=== PATIENT | male | born 2000 | race Caucasian/White ===

== ENCOUNTER 2024-11-29 10:05 | Emergency (ER) | payer BC, SELFPAY ==
[2024-11-29 10:05] VITALS: BP 123/83; PULSE 49; RESP 16; TEMP 36.1; O2SAT 100; BMI 25.2
--- NOTE | 2024-11-29 10:28 | RAD_ITS ---
PROCEDURE: SHOULDER MIN 2 VIEWS 11/29/2024 REASON FOR EXAM: Pain, decreased range of motion TECHNIQUE: SHOULDER MIN 4 VIEWS COMPARISON: None FINDINGS: Bones: No fracture or suspicious osseous lesion Joints: Joint spaces well-preserved, no dislocation or subluxation. Soft tissues: Unremarkable Other: No upper rib fracture or pneumothorax RAD/Shoulder min 2 Views IMPRESSION: No acute abnormalities Reading Location: [id number]
--- NOTE | 2024-11-29 10:46 | EX.ED.UPPERE ---
HPI History of Present Illness Chief Complaint: Upper Extremity Injury Narrative Narrative: Chief complaint and HPI: Right shoulder pain. 24-year-old male with no significant past medical history presents for evaluation of right shoulder pain. Onset of symptoms yesterday. Denies any trauma or injury. Denies lifting anything heavy. States he went to [facility] in which she had an x-ray performed however left before results. He has been taking Tylenol with little relief. Denies any numbness or tingling. Denies any fever, chills, shortness of breath, chest pain, nausea, vomiting. Review of systems: See HPI Medications: As listed on the chart Allergies: As listed on the chart PFSH: Per chart Vital signs: As listed on the chart. Reviewed. Physical exam: Gen: A&O x3, NAD Head: Normocephalic, atraumatic Eyes: No sclera icterus, conjunctiva clear ENT: Moist mucous membranes Neck: Trachea midline, No JVD full range of motion, nontender, CV: RRR, no murmurs Resp: Lungs CTA BL, no w/r/c Musc: Limited active range of motion of the right shoulder secondary to pain, full passive range of motion, no erythema/warmth/ecchymosis/induration/fluctuance/crepitus\/rash, no dislocation, mild tenderness to palpation of the deltoid muscle, radial pulse +2 bilaterally, good capillary refill, compartments soft, no midline spinal tenderness, no bony step-offs Skin: Warm, dry Neuro: Alert, oriented, grossly intact, sensation intact Psych: Cooperative, appropriate mood and affect PFSH PFSH Medical History no medical history Home Medications ?Medication ?Instructions ?Recorded ?Last Taken ?Type cyclobenzaprine 5 mg tablet 5 mg PO TID PRN muscle spasm 3 11/29/24 Unknown Rx days #9 tabs Allergy/AdvReac Type Severity Reaction Status Date / Time No Known Allergies Allergy Verified 11/29/24 10:07 Social History Smoking Status: Current every day smoker tobacco type: e-cigarettes EXAM Physical Exam Const Vital Signs: 11/29/24 10:05 Temperature 96.9 F L Temperature Source Temporal Pulse Rate 49 L Respiratory Rate 16 Blood Pressure 123/83 H Blood Pressure Mean 96 Pulse Ox 100 Oxygen Delivery Method Room Air MDM MDM MDM Narrative Medical decision making narrative: 24-year-old male with no significant past medical history presents for evaluation of right shoulder pain. Onset of symptoms yesterday. Denies any trauma or injury. Differential diagnosis includes but is not limited to myofascial spasm, rotator cuff injury, suspect less likely fracture or dislocation. Exam and history not consistent for infection. IM Toradol and cyclobenzaprine ordered for symptoms. X-ray of the shoulder ordered. X-ray of the right shoulder was personally viewed interpreted by me, ED physician. No fracture or dislocation. Radiology in agreement. At this point in time, no clear etiology for patient's pain. May be secondary to myofascial spasm versus shoulder strain. Patient was educated on Tylenol Motrin as needed for pain. Muscle relaxer as needed for spasm. Follow-up with primary care physician and orthopedic physician. Return precautions explained. He confirmed understand the plan. Patient stable to discharge home. Impression: 1. Right shoulder pain Discharge Plan Triage Chief Complaint: Upper Extremity Injury ED Provider: Pepito Light Dx/Rx/DC Orders Clinical Impression: Right shoulder strain Instructions: ED Shoulder Pain, Uncertain Cause Prescriptions: New cyclobenzaprine 5 mg tablet 5 mg PO TID PRN (Reason: muscle spasm) 3 Days Qty: 9 0RF Primary Care Provider: Care Physician,Dena Primary Referrals: Shiraz Davis DO [Med Staff - Active Staff] - 3-5 Days Onofre Cervantes MD [Med Staff - Active Staff] - 3-5 Days Activity Restrictions/Additional Instructions: You received Toradol here in the emergency department, no ibuprofen for 8 hours after that okay for ibuprofen. Recommend Tylenol. Muscle relaxer as needed for muscle spasm. You received your first dose here in the emergency department. No muscle relaxer for 8 hours. Muscle relaxers can increase falls, confusion, fatigue. Do not drive or operate heavy machinery while taking these. Follow-up with primary care physician and orthopedics. Print Language: Libyan Disposition Disposition: Home, Self Care
[2024-11-29] MEDS: Ketorolac 30 MG/ML Syringe IV (11:15)
[2024-11-29 11:40] VITALS: BP 112/72; PULSE 69; RESP 17; TEMP 36.9; O2SAT 100
== END 2024-11-29 11:40 | disposition home or self-care (01) ==
PROVIDERS: Emergency Provider Surgery; Visit Provider Surgery
DX: S46.911A Strain of unspecified muscle, fascia and tendon at shoulder and upper arm level, right arm, initial encounter (principal); F17.290 Nicotine dependence, other tobacco product, uncomplicated
CPT/HCPCS: 73030; 96374; 99282